=== PATIENT | female | born 1950 | race Native Hawaiian/Other Pacific Islander ===

== ENCOUNTER 2023-08-01 10:52 | Emergency (ER) | payer MEDICARE, OTHER ==
[2023-08-01 11:47] VITALS: BP 120/62
[2023-08-01 11:50] LABS: CREATININE 0.7 mg/dL (0.6-1.3); POTASSIUM 4.6 mmol/L (3.5-4.5)
--- NOTE | 2023-08-01 11:56 | ED Physician Documentation ---
History of Present Illness - Stated complaint Stated Complaint: HIGH POTASSIUM - Chief complaint Chief Complaint: General - History obtained from History obtained from: Patient - Additonal information Additional information: Patient is a 73-year-old female presenting for evaluation of abnormal outpatient labs. Patient had routine labs done yesterday at [facility]. She normally sees a PCP at [facility] primary 10 but had labs done here as she is visiting the area. She was called by her PCP today to have her potassium rechecked as it was reportedly 6 on outpatient labs. Patient denies a history of hyperkalemia in the past. Denies a history of kidney disease. Denies feeling weak, short of air or having issues with urination. Review of Systems Constitutional: denies: Fever Cardiac: denies: Chest pain / pressure Respiratory: denies: Dyspnea GI: denies: Abdominal Pain Neurologic: denies: Generalized weakness PD PAST MEDICAL HISTORY - Past Medical History Past Medical History: Yes Cardiovascular: Atrial fibrillation Respiratory: Pneumonia Neuro: None Endocrine/Autoimmune: None GI: None AUTO PAINTER: None : None HEENT: None Psych: None Musculoskeletal: Osteoarthritis Derm: None - Past Surgical History Past Surgical History: Yes /AUTO PAINTER: Tubal ligation - Present Medications Home Medications: Ambulatory Orders Medication Instructions Recorded Confirmed Acetaminophen [Tylenol Extra 500 mg PO PRN PRN 08/01/23 08/01/23 Strength] Aspirin [Aspirin EC] 81 mg PO DAILY 08/01/23 08/01/23 Celecoxib [CeleBREX] 100 mg PO BID 08/01/23 08/01/23 Gabapentin [Neurontin] 100 mg PO TID 08/01/23 08/01/23 Hydrocodone/Acetaminophen 1 each PO PRN PRN 08/01/23 08/01/23 [Hydrocodone-Acetamin 10-325 mg] - Allergies Allergies/Adverse Reactions: Allergies Allergy/AdvReac Type Severity Reaction Status Date / Time INH AdvReac Unknown Uncoded 08/01/23 11:04 - Social History Does the pt smoke?: Yes Smoking Status: Current every day smoker Does the pt drink ETOH?: No Does the pt have substance abuse?: No - Immunizations Immunizations are current?: Yes - POLST Patient has POLST: No PD ED PE NORMAL - General General: Alert and oriented X 3, No acute distress, Well developed/nourished - HEENT HEENT: Atraumatic - Neck Neck: Supple, no meningeal sign - Cardiac Cardiac: RRR, Strong equal pulses - Respiratory Respiratory: No respiratory distress, Clear bilaterally - Abdomen Abdomen: Soft, Non tender, Non distended - Derm Derm: Warm and dry - Neuro Neuro: Alert and oriented X 3, No motor deficit, Normal speech Results - Vitals Vitals: Vital Signs - 24 hr 08/01/23 08/01/23 08/01/23 10:55 11:45 12:02 Temperature 36.4 C L Heart Rate 72 65 61 Respiratory 20 15 18 Rate Blood Pressure 161/63 H 120/62 120/62 O2 Saturation 100 96 99 Oxygen O2 Source Room air - Labs Labs: Laboratory Tests 08/01/23 11:30 Sodium 136 Potassium 4.6 H Chloride 102 Carbon Dioxide 26 Anion Gap 8.0 BUN 28 H Creatinine 0.7 Estimated GFR (MDRD) 82 L Glucose 86 Calcium 10.0 PD Medical Decision Making - ED course Complexity details: reviewed results, d/w patient ED course: Patient here for recheck of elevated potassium done on outpatient labs yesterday. She is without symptoms. Denies history of kidney disease. BMP was obtained which demonstrates a potassium of 4.6 which is at the upper limit of normal as well as a BUN of 28. No prior labs available for comparison and patient does not have access to a patient portal from the [facility] to see prior labs.She does not appear to have any symptoms related to the slight elevation in her BUN and potassium of 4.6 does not require any treatment. Patient counseled on need for follow-up with her primary care provider as well as advised on concerning symptoms to return for. Departure - Departure Disposition: 01 Home, Self Care Clinical Impression: Encounter for medical screening examination, Elevated BUN Condition: Stable Follow-Up: [facility] [Provider Group] Comments: Your testing today shows that your Potassium today is at the upper limit of normal at 4.6. It does not require any emergent treatment at this time. Your BUN which is also a test to look at your kidney is slightly elevated at 28 But your creatinine which also checks your kidneys is normal. I would recommend continued close follow-up with your primary care provider. Return to the ER if you develop any symptoms such as weakness, difficulty breathing, decreased urination or any other concerns. Forms: PCP List Discharge Date/Time: 08/01/23 12:09
[2023-08-01 12:06] VITALS: O2SAT 99
== END 2023-08-01 12:09 | disposition home or self-care (01) ==
LOC: ED 10:52
DX: Z13.89 Encounter for screening for other disorder (principal); F17.200 Nicotine dependence, unspecified, uncomplicated
CPT/HCPCS: 36415; 80048; 99283